=== PATIENT | male | born 1985 | race Caucasian/White ===

== ENCOUNTER 2017-12-08 12:07 | Emergency (ER) | payer OTHER, SELFPAY ==
[2017-12-08 12:09] VITALS: BP 145/75; PULSE 85; RESP 16; TEMP 37.1; O2SAT 95; BMI 28.9
--- NOTE | 2017-12-08 12:13 | ED.RN ---
called supervisor grounds January at [phone]. She states no drug screen and to follow up with listed company with [facility]
--- NOTE | 2017-12-08 12:33 | ED.VISSUMM ---
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 No loss of conscious. No vomiting. He notes his tetanus is up-to-date. Physical Examination: Afebrile vital signs stable There is a 1 cm V-shaped laceration in the right parietal scalp. There is mild bleeding. Emergency Department Course and Treatment: Wound was locally anesthetized using 1% lidocaine. It was washed and explored. It was closed using a total of 2 4-0 simple interrupted Ethilon sutures. Wound care discussed with patient. Follow-up with [facility] in 5-7 days Impression: 1. 1 cm scalp laceration with repair This note was generated with ReferStar dictation software. It may contain incorrect words, spelling, and punctuation that were not noted in review of the chart prior to signing ED Disposition - Plan for ED Patient: Disposition: Home or Assisted Living Chief Complaint: Head Injury Instructions: ED Laceration Scalp Stitch Or Stap Referrals: Care Physician,No Primary [Primary Care Provider] - [facility] [GROUP OF PHYSICIANS] - (in 5-7 days for suture removal)
--- NOTE | 2017-12-08 12:45 | ED.DCSUM_ITS ---
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 No loss of conscious. No vomiting. He notes his tetanus is up-to-date. Physical Examination: Afebrile vital signs stable There is a 1 cm V-shaped laceration in the right parietal scalp. There is mild bleeding. Emergency Department Course and Treatment: Wound was locally anesthetized using 1% lidocaine. It was washed and explored. It was closed using a total of 2 4- 0 simple interrupted Ethilon sutures. Wound care discussed with patient. Follow-up with [facility] in 5-7 days Impression: 1. 1 cm scalp laceration with repair This note was generated with Jur[employer] dictation software. It may contain incorrect words, spelling, and punctuation that were not noted in review of the chart prior to signing ED Disposition - Plan for ED Patient: Disposition: Home or Assisted Living Chief Complaint: Head Injury Instructions: ED Laceration Scalp Stitch Or Stap Referrals: Care Physician,No Primary [Primary Care Provider] - [facility] [GROUP OF PHYSICIANS] - (in 5-7 days for suture removal)
[2017-12-08 12:52] VITALS: PULSE 80; RESP 14; O2SAT 99
== END 2017-12-08 12:53 | disposition home or self-care (01) ==
PROVIDERS: Emergency Provider Emergency Medicine
DX: S01.01XA Laceration without foreign body of scalp, initial encounter (principal); W22.8XXA Striking against or struck by other objects, initial encounter; Y93.E2 Activity, laundry; Y92.89 Other specified places as the place of occurrence of the external cause; Y99.0 Civilian activity done for income or pay
CPT/HCPCS: 12001; 99282

== ENCOUNTER → 2018-01-09 11:14 | Outpatient (CLI) | payer OTHER, SELFPAY ==
--- NOTE | 2018-01-09 11:17 | RAD_ITS ---
STUDY: X-RAY - LEFT SHOULDER REASON FOR EXAM: Male, 32 years old. Fall. Painful left shoulder. TECHNIQUE: 4 view(s) of the shoulder. COMPARISON: None. FINDINGS: Normal glenohumeral articulation. Normal acromioclavicular joint. Normal acromion. There is no acute fracture, dislocation or destructive osseous pathology. Normal humeral head and visualized proximal humerus. The soft tissue structures are unremarkable. Normal visualized pulmonary apex. RAD/Shoulder min 2 Views IMPRESSION: Normal x-ray examination of the shoulder. Electronically Signed: Umesh Hernández DO at 16:56 EDT Tel [phone], Service support ,
== END ==
PROVIDERS: Visit Provider Physician Assistant Medical
DX: S40.012A Contusion of left shoulder, initial encounter (principal)
CPT/HCPCS: 73030

== ENCOUNTER 2018-03-25 10:56 | Emergency (ER) | payer OTHER, BC, SELFPAY ==
[2018-03-25 10:57] VITALS: BP 126/72; PULSE 78; RESP 16; TEMP 36.6; O2SAT 99; BMI 27.2
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
[2018-03-25] MEDS: Amox/Clavulanate 875 MG Tablet PO (11:29)
--- NOTE | 2018-03-25 11:32 | ED.RN ---
SPOKE WITH IDA, [employer] AT [facility]. IDA STATES THAT PT DOES NOT NEED DRUG TESTED.
[2018-03-25 11:35] VITALS: RESP 16
--- NOTE | 2018-03-25 11:35 | ED.RN ---
REVIEWED D/C INSTRUCTIONS, FOLLOW UP CARE, PRESCRIPTION, AND S/S THAT WOULD WARRANT A RETURN TO THE ED WITH PT. PT VERBALIZED AN UNDERSTANDING AND DENIES FURTHER QUESTIONS FOR THIS RN. PT SKIN P/W/D, RESP EVEN AND UNLABORED, PT A&O X 3, NO DISTRESS NOTED. PT AMBULATED OUT OF ED, GAIT STEADY.
== END 2018-03-25 11:37 | disposition home or self-care (01) ==
LOC: ED 11:21
PROVIDERS: Emergency Provider Emergency Medicine
DX: S00.33XA Contusion of nose, initial encounter (principal); S51.851A Open bite of right forearm, initial encounter; S09.90XA Unspecified injury of head, initial encounter; Y04.1XXA Assault by human bite, initial encounter; Y93.89 Activity, other specified; Y92.119 Unspecified place in children's home and orphanage as the place of occurrence of the external cause; Y99.0 Civilian activity done for income or pay
CPT/HCPCS: 99283

== ENCOUNTER 2022-12-10 22:12 | Emergency (ER) | payer BC, SELFPAY ==
[2022-12-10 22:13] VITALS: BP 112/76; PULSE 77; RESP 15; TEMP 37.2; O2SAT 97
--- NOTE | 2022-12-10 22:40 | RAD_ITS ---
INDICATION: INJURY -- ACHILLES TENDON PAIN EXAMINATION/TECHNIQUE: X-RAY - RIGHT XR Ankle Min 3 Views 3 VIEWS COMPARISON: None. FINDINGS: SOFT TISSUES: No soft tissue swelling or gas. No radiopaque foreign body. BONES/JOINTS: No acute fracture or subluxation. Old medial malleolus fracture. Normal alignment. Preservation of the joint space. No sclerotic or destructive changes observed. RAD/Ankle min 3 Views IMPRESSION: Normal radiographic appearance of the Achilles tendon. No acute abnormal finding. Electronically Signed: Irvin Mak MD at 22:59 EST ,
--- NOTE | 2022-12-10 23:54 | ED.VIS.LOWEX ---
HPI History of Present Illness Chief Complaint: Lower Extremity Injury Informant: patient and spouse/S.O. Narrative Narrative: Presents injury to his Achilles at 8:30 PM. He was playing basketball when he was planting his right foot he felt a pop behind his ankle. Pain when he ambulates. No history of similar. No head injuries. Took Tylenol prior to plane basketball due to slight headache that is improved.. Does not follow orthopedics. Prior similar symptoms: No PFSH PFSH Medical History Partial Achilles tendon tear Home Medications amoxicillin 875 mg-potassium clavulanate 125 mg tablet 875 mg PO Q12H #20 tabs 03/25/18 [Rx Last Taken Unknown] Allergy/AdvReac Type Severity Reaction Status Date / Time No Known Allergies Allergy Verified 12/10/22 22:16 Social History Smoking Status: Never smoker alcohol intake: never ROS ROS ED Constitutional Constitutional ED: Denies chills, fever(s) or sweats Eyes Eyes: Denies change in vision ENT ENT ED: Denies dysphagia or sore throat Cardiovascular Cardiovascular: Denies chest pain, leg edema, palpitations or racing heartbeat Respiratory/Chest Respiratory/Chest: Denies cough, dyspnea or dyspnea on exertion Gastrointestinal Gastrointestinal: Denies abdominal pain, diarrhea, nausea or vomiting Genitourinary Genitourinary ED: Denies dysuria, hematuria or urinary frequency Musculoskeletal Musculoskeletal: Reports extremity pain; Denies back pain or neck pain Integumentary Denies rash or wounds Neurologic Neurologic: Denies headache(s), paresthesias or weakness EXAM Physical Exam Const Vital Signs: 12/10/22 22:13 Temperature 98.9 F Temperature Source Temporal Pulse Rate 77 Respiratory Rate 15 Blood Pressure 112/76 Blood Pressure Mean 88 Pulse Ox 97 Oxygen Delivery Method Room Air Positive well nourished and well developed General Appearance ED: well developed and NAD HEENT Reports moist mucous membranes normocephalic and atraumatic Eyes PERRL, EOMs intact bilaterally and conjunctivae normal General Eye ED: Yes normal appearance of both eyes Neck no lymphadenopathy and supple General: Negative for tenderness Chest Wall Chest: Negative for tenderness Resp normal respiratory effort and normal air movement Effort and Inspection: symmetric chest movement; Negative for respiratory distress Cardio regular rate, regular rhythm and no murmurs Peripheral Pulses: pulses 2+ throughout GI normal to inspection, nondistended, normoactive bowel sounds and non-tender Palpation: Negative for guarding or rebound tenderness present Back/Spine no CVA tenderness and no thoracic nor lumbar tenderness Extremity Extremity Narrative: Right lower extremity: No malleoli or tenderness no fibular tenderness. No deformities. Dunn's was intact however he had pain and small defect above the main Achilles tendon. Tenderness region. Neuro vas intact distally. General Extremety ED: Negative for edema or tenderness General Extremity: Negative for edema Neuro oriented x3 and no sensory deficits noted Sensorium / Orientation: awake and alert Skin no rashes or lesions noted and no wounds MDM MDM MDM Narrative Medical decision making narrative: Interventions / MDM: Differential diagnosis: Achilles tendon injury partial tear, Diagnosis considered but do not suspect: Ankle fracture or dislocation however x-ray negative. My EKG interpretation: N/A Imaging independently reviewed and interpreted by myself: 3 views right ankle: No fracture or dislocation External documents reviewed: N/A Test considered but not ordered:N/A ED course: X-ray obtained from triage negative. Clinically defect above the main Achilles, concern for partial tear. Patient placed in a walking boot, discussed no strenuous activities, he has crutches at home. He will use ibuprofen. He is given follow-up with orthopedics and outpatient to follow and manage. All questions were answered. Re-evaluation: stable Disposition discussed with patient/family/significant other: Patient and significant other Case discussed with consulting clinician: N/A Radiography Diagnostic Testing: Clinical Impression(s) from Imaging Studies Ankle X-Ray 12/10/22 22:40 IMPRESSION: Normal radiographic appearance of the Achilles tendon. No acute abnormal finding. Electronically Signed: Irvin Mak MD at 22:59 EST , Discharge Plan Triage Chief Complaint: Lower Extremity Injury ED Provider: Lars Ambrosio Dx/Rx/DC Orders Clinical Impression: Partial Achilles tendon tear, Injury of right leg Instructions: ED Tendon Rupture Achilles Prescriptions: No Action amoxicillin-pot clavulanate 875 MG tablet 875 mg PO Q12H Qty: 20 0RF Stand Alone Forms: ED Work / School Excuse Primary Care Provider: Care Physician,No Primary Referrals: Osvaldo Jennings MD [Med Staff - Active Staff] - 5-7 Days Care Physician,No Primary [Primary Care Provider] - Activity Restrictions/Additional Instructions: Ankle x-ray negative. Exam you have a partial Achilles tear above the main tendon. Use the walking boot, no strenuous activities. Use your crutches at home. Ibuprofen total 600 g every 6 hours. Follow-up with orthopedics for outpatient evaluation. Disposition Disposition: Home, Self Care
== END 2022-12-11 00:07 | disposition home or self-care (01) ==
LOC: ED 23:43
PROVIDERS: Emergency Provider Emergency Medicine; Visit Provider Emergency Medicine
DX: S86.011A Strain of right Achilles tendon, initial encounter (principal); Y93.67 Activity, basketball
CPT/HCPCS: 73610; 99283